=== PATIENT | female | born 1955 | race Caucasian/White ===

== ENCOUNTER 2021-10-05 09:57 | Emergency (ER) | payer MEDICARE, OTHER ==
[2021-10-05] MEDS ORDERED: Ibuprofen 200 MG TAB ONE (10:40)
== END 2021-10-05 12:23 | disposition home or self-care (01) ==
LOC: CSHERS 09:57
DX: S82.61XA Displaced fracture of lateral malleolus of right fibula, initial encounter for closed fracture (principal); W19.XXXA Unspecified fall, initial encounter
CPT/HCPCS: 29515